=== PATIENT | female | born 1960 ===

== ENCOUNTER → 2017-11-13 | Outpatient (CLI) | payer BC ==
--- NOTE | 2017-11-13 10:57 | PCVCIMAG ---
APPROVED REPORT Study performed: 11/13/2017 08:51:49 EXAM: Comprehensive 2D, Doppler, and color-flow Echocardiogram Patient Location: Echo lab Status: routine BSA: 2.41 HR: 51 bpmBP: 180/90 mmHg Rhythm: NSR Other Information Study Quality: Adequate Technically limited study due to body habitus. Risk Factors: Cardiac Risk Factors: Hyperlipidemia, HTN Indications Atrial Fibrillation 2D Dimensions IVSd: 13.47 (7-11mm)LVOT Diam: 21.00 (18-24mm) LVDd: 36.87 mm PWd: 12.43 (7-11mm)Ascending Ao: 28.70 (22-36mm) LVDs: 25.38 (25-40mm) Left Atrium: 40.52 (27-40mm) Aortic Root: 29.33 mm LV Single Plane 4CH: 56.43 % LV Single Plane 2CH: 55.56 % Volumes Left Atrial Volume (Systole) Single Plane 4CH: 78.93 mLSingle Plane 2CH: 70.22 mL LA ESV Index: 33.00 mL/m2 Aortic Valve AoV Peak Matthew.: 1.96 m/s AO Peak Gr.: 15.36 mmHgLVOT Max P.13 mmHg LVOT Max V: 1.29 m/s REYNA Vmax: 2.38 cm2 Mitral Valve E/A Ratio: 2.6 MV Decel. Time: 145.45 ms MV E Max Matthew.: 1.23 m/s MV A Matthew.: 0.48 m/s IVRT: 65.74 ms TDI E/Lateral E': 12.30E/Medial E': 20.50 Medial E' Matthew.: 0.06 m/s Lateral E' Matthew.: 0.10 m/s Pulmonary Valve PV Peak Matthew.: 0.83 m/sPV Peak Gr.: 2.74 mmHg Pulmonary Vein P Vein S: 0.23 m/sP Vein A: 0.20 m/s P Vein D: 0.64 m/sP Vein A Dur.: 100.3 msec P Vein S/D Ratio: 0.36 Tricuspid Valve TR Peak Matthew.: 3.41 m/sRAP Estimate: 10.00 mmHg TR Peak Gr.: 46.60 mmHg PA Pressure: 57.00 mmHg Left Ventricle The left ventricle is normal size. There is normal LV segmental wall motion. Mild to moderate concentric left ventricular hypertrophy. Left ventricular systolic function is normal. The left ventricular ejection fraction is within the normal range. LVEF is 55-60%. The left ventricular diastolic function is normal. Right Ventricle The right ventricle is normal size. The right ventricular systolic function is normal. Atria Left atrium is borderline dilated. Right atrium is borderline dilated. Aortic Valve The aortic valve is normal in structure. Trace aortic regurgitation. There is no aortic valvular stenosis. Mitral Valve The mitral valve is normal in structure. Mild mitral regurgitation. No evidence of mitral valve stenosis. Tricuspid Valve The tricuspid valve is normal in structure. Trace to mild tricuspid regurgitation. Pulmnonary artery pressure is 57 mmHg. Pulmonic Valve The pulmonary valve is normal in structure. Trace pulmonic regurgitation. Great Vessels The aortic root is normal in size. IVC is dilated and collapses >50% with inspiration. Pericardium There is no pericardial effusion. <Conclusion> The left ventricle is normal size. LVEF is 55-60%. Left atrium is borderline dilated. Right atrium is borderline dilated. The aortic valve is normal in structure. Trace aortic regurgitation. The mitral valve is normal in structure. Mild mitral regurgitation. The tricuspid valve is normal in structure. Trace to mild tricuspid regurgitation. Pulmnonary artery pressure is 57 mmHg. The pulmonary valve is normal in structure. Trace pulmonic regurgitation. There is no pericardial effusion.
== END | disposition home or self-care (01) ==
LOC: PCVCIMAG 10:48
PROVIDERS: ATTEND Internal Medicine
DX: I48.91 Unspecified atrial fibrillation (principal); I10 Essential (primary) hypertension; I05.1 Rheumatic mitral insufficiency
CPT/HCPCS: 93306